=== PATIENT | male | born 1970 | race Caucasian/White ===

== ENCOUNTER 2022-09-17 00:35 | Day surgery (SDC) | payer BC, SELFPAY ==
[2022-09-06 14:38] VITALS: BMI 29.2
[2022-09-17 07:03] VITALS: BP 130/91; PULSE 95; RESP 18; TEMP 36.6; O2SAT 98
[2022-09-17] MEDS: LACTATED RINGERS 1,000 ML 150 ML IV CONT (07:12)
[2022-09-17 07:16] LABS: Glucose Point of Care 108 mg/dl (65-105)
--- NOTE | 2022-09-17 07:42 | P.PNAN_ITS ---
Anes - Initial Pre Proc Eval Procedure: Operation Date: 09/17/22 08:15 Proposed Procedures p Screening Colonoscopy - Clement De La Fuente MD Date/Time: 09/17/22 07:42 Surgeon: Clement De La Fuente MD Pre Op Diagnosis: neoplasm screening Patient Data Age: 52 Gender: M Height: 1.83 m Weight: 97.3 kg Last Vital Signs Temp 36.6 C 09/17/22 07:03 Pulse 95 09/17/22 07:03 Resp 18 09/17/22 07:03 BP 130/91 H 09/17/22 07:03 Pulse Ox 98 09/17/22 07:03 O2 Del Method Room Air 09/17/22 07:03 Allergies Allergy/AdvReac Type Severity Reaction Status Date / Time No Known Allergies Allergy Verified 09/17/22 07:01 Home Medications Medication Instructions Recorded Confirmed Type carvedilol 25 mg tablet 25 mg PO Q12H 09/06/22 09/06/22 History cetirizine 10 mg tablet 10 mg PO DAILY 09/06/22 09/06/22 History icosapent ethyl 1 gram capsule 2 g PO BID 09/06/22 09/06/22 History lisinopril 20 mg tablet 20 mg PO BID 09/06/22 09/06/22 History metformin 500 mg tablet,extended 1,000 mg PO DAILY 09/06/22 09/06/22 History release 24 hr metformin 500 mg tablet,extended 500 mg PO DAILY 09/06/22 09/06/22 History release 24 hr nifedipine 30 mg tablet,extended 30 mg PO DAILY 09/06/22 09/06/22 History release paroxetine HCl 20 mg tablet 20 mg PO DAILY 09/06/22 09/06/22 History semaglutide 0.25 mg or 0.5 mg (2 0.5 mg subcut WEEKLY 09/06/22 09/06/22 History mg/1.5 mL) subcutaneous pen injector (Ozempic) simvastatin 20 mg tablet 20 mg PO DAILY 09/06/22 09/06/22 History Laboratory Tests 09/17/22 07:11 POC Capillary Glucose 108 mg/dl H mg/dl (65-105) Patient hx anesthesia problems: none Family hx anesthesia problems: none Results Review: All pre-operative results and documents have been reviewed as part of the pre- operative evaluation. PMFSH Past Medical History Medical History (Updated 09/17/22 @ 07:44 by Joshua Jimenes MD) Diabetes HTN (hypertension) ROSALES (obstructive sleep apnea) Overweight Social History Social History Smoking status: Never smoker Alcohol intake: current Drinks per week: 2 Substance use: never Substance use type: does not use Living arrangements: with family Spiritual care concerns: No Anes - Eval Final PreProcedure Day of Procedure 09/17/22 07:42 Patient weight: overweight Heart: regular rate and rhythm Lungs: clear to auscultation Airway: Mallampati scale class 1 Neurological: alert and oriented Last oral intake: >/= 8 hours ASA classification: III Emergent: no Anesthetic plan: proceed Anesthesia type and monitoring: general GIVS and standard monitoring Results Review: All pre-operative results and documents have been reviewed as part of the pre- operative evaluation. Informed Consent: The patient's anesthetic plan and its attendant risks and benefits were discussed with the patient/family/POA. Questions were solicited and answers provided to the satisfaction of the patient/family/POA.
--- NOTE | 2022-09-17 08:00 | PM.HPGS ---
History of Present Illness History of Present Illness Consent: Risks, benefits, and alternatives have been discussed and questions answered. Patient agrees to proceed with procedure. Chief complaint: neoplasm screening Narrative: Joshua Mcintyre is a 52 year old male here for first screening colonoscopy Review of Systems Constitutional: Constitutional: Denies headache(s) and Denies weakness Eyes: Eyes: Denies blurry vision ENT: Reports Normal hearing present, Denies headache(s) and Denies neck pain Cardiovascular: Cardiovascular: Denies chest pain and Denies dyspnea Respiratory: Respiratory: Denies dyspnea Gastrointestinal: Gastrointestinal: Reports no additional gastrointestinal complaints Genitourinary: Genitourinary: Denies dysuria Musculoskeletal: Musculoskeletal: Denies neck pain Integumentary/Breasts: Skin/Breast: Denies dry skin Neurologic: Reports Normal hearing present, Denies headache(s) and Denies weakness Psychiatric: Psychiatric: Denies anxiety Endocrine: Endocrine: Denies change in body appearance Hematologic/Lymphatic: Hematologic/Lymphatic: Denies easy bleeding Allergic/Immunologic: Allergic/Immunologic: Denies urticaria [facility] Past Medical History Medical History (Updated 09/17/22 @ 08:00 by Clement De La Fuente MD) Colon cancer screening Diabetes HTN (hypertension) ROSALES (obstructive sleep apnea) Overweight Social History Social History Smoking status: Never smoker Alcohol intake: current Drinks per week: 2 Substance use: never Substance use type: does not use Living arrangements: with family Spiritual care concerns: No Meds Home Medications and Allergies Home Medications Medication Instructions Recorded Confirmed Type carvedilol 25 mg tablet 25 mg PO Q12H 09/06/22 09/06/22 History cetirizine 10 mg tablet 10 mg PO DAILY 09/06/22 09/06/22 History icosapent ethyl 1 gram capsule 2 g PO BID 09/06/22 09/06/22 History lisinopril 20 mg tablet 20 mg PO BID 09/06/22 09/06/22 History metformin 500 mg tablet,extended 1,000 mg PO DAILY 09/06/22 09/06/22 History release 24 hr metformin 500 mg tablet,extended 500 mg PO DAILY 09/06/22 09/06/22 History release 24 hr nifedipine 30 mg tablet,extended 30 mg PO DAILY 09/06/22 09/06/22 History release paroxetine HCl 20 mg tablet 20 mg PO DAILY 09/06/22 09/06/22 History semaglutide 0.25 mg or 0.5 mg (2 0.5 mg subcut WEEKLY 09/06/22 09/06/22 History mg/1.5 mL) subcutaneous pen injector (Ozempic) simvastatin 20 mg tablet 20 mg PO DAILY 09/06/22 09/06/22 History Allergies Allergy/AdvReac Type Severity Reaction Status Date / Time No Known Allergies Allergy Verified 09/17/22 07:01 Vital Signs Vital Signs - 24 hr 09/17/22 07:03 Temperature 97.9 F Pulse Rate 95 Respiratory Rate 18 Blood Pressure 130/91 H Pulse Oximetry 98 Oxygen Delivery Room Air Exam Const: General: comfortable and no acute distress HENMT: Face/Nose/Sinus: Normal nares present Eyes: General: appearance normal, both eyes and all related structures Neck: Neck: no JVD Resp: Auscultation: clear to auscultation bilaterally Cardio: Rate: regular rate Rhythm: regular rhythm GI: Inspection: non-distended GI Palp: Yes Soft to palpation Skin: General skin exam: normal color Neuro: General: gait normal Speech: normal speech Extrem: General: normal to inspection Psych: Mental Status: mental status grossly normal Assessment and Plan Assessment and plan (1) Colon cancer screening: Code(s): Z12.11 - Encounter for screening for malignant neoplasm of colon Status: Acute Assessment and Plan: colonoscopy
[2022-09-17 08:17] VITALS: BP 108/76; PULSE 87; RESP 18; O2SAT 96
[2022-09-17 08:27] VITALS: BP 125/8; PULSE 84; RESP 16; O2SAT 98
[2022-09-17 08:37] VITALS: BP 129/93; PULSE 86; RESP 16; O2SAT 99
== END 2022-09-17 08:46 | disposition home or self-care (01) ==
PROVIDERS: PCP Internal Medicine; Visit Provider Internal Medicine Gastroenterology
PROC: 0DJD8ZZ Inspection of Lower Intestinal Tract, Via Natural or Artificial Opening Endoscopic (ICD-10-PCS; CPT 45378; principal; 2022-09-17 08:15)
DX: Z12.11 Encounter for screening for malignant neoplasm of colon (principal); K57.30 Diverticulosis of large intestine without perforation or abscess without bleeding; D12.4 Benign neoplasm of descending colon; E11.9 Type 2 diabetes mellitus without complications; I10 Essential (primary) hypertension; G47.33 Obstructive sleep apnea (adult) (pediatric); Z79.84 Long term (current) use of oral hypoglycemic drugs; Z79.899 Other long term (current) drug therapy
CPT/HCPCS: 45385; 82948; 88305; J2704; J7120